=== PATIENT | male | born 1995 | race Caucasian/White ===

== ENCOUNTER 2021-08-16 13:02 | Emergency (ER) | payer SELFPAY ==
[~2021-08-16] VITALS: Ht 172.7 cm; Wt 117.9 kg
[2021-08-16 13:10] VITALS: BP 136/111
[2021-08-16] MEDS ORDERED: LORAZEPAM INJ 2 MG/ML VIAL ONE (13:46)
[2021-08-16] MEDS ORDERED: LORAZEPAM INJ 2 MG/ML VIAL IM ONE (14:00)
--- NOTE | 2021-08-16 15:05 | NUR ---
Patient discharged to home in stable condition. Written and verbal after care instructions given. Patient verbalizes understanding of instruction.
== END 2021-08-16 15:05 | disposition home or self-care (01) ==
LOC: ER 13:24
DX: F15.10 Other stimulant abuse, uncomplicated (principal); F41.9 Anxiety disorder, unspecified
CPT/HCPCS: 93005; 96372; 99283; J2060